=== PATIENT | female | born 1970 | race Caucasian/White ===

== ENCOUNTER 2023-06-25 15:34 | Emergency (ER) | payer SELFPAY ==
[2023-06-25 15:41] VITALS: BP 120/79; PULSE 90; RESP 18; TEMP 98; BMI 25.8
[2023-06-25] MEDS ORDERED: ACETAMINOPHEN 1000 MG/100 ML BAG IVPB ONE (16:28)
[2023-06-25] MEDS ORDERED: ONDANSETRON 4 MG/2 ML VIAL IVPUSH ONE (16:28)
== END 2023-06-25 17:05 | disposition home or self-care (01) ==
LOC: JER 15:34
DX: R10.30 Lower abdominal pain, unspecified (principal); N39.0 Urinary tract infection, site not specified; R11.0 Nausea; M54.9 Dorsalgia, unspecified
CPT/HCPCS: 99282-25